=== PATIENT | male | born 1970 | race Caucasian/White ===

== ENCOUNTER 2016-09-29 20:56 | Emergency (ER) | payer MEDICAID, OTHER ==
[2016-09-29] MEDS ORDERED: Dexamethasone Sodium Phos 10 mg/mL PF Vial ONE (21:09)
--- NOTE | 2016-09-29 21:11 | ED Physician Chart ---
Chief Complaint/HPI - Patient Information Date Seen:: 09/29/16 Time Seen:: 21:00 Chief Complaint:: knee pain History of Present Illness:: 46-year-old male history of hypertension, complains of acute, constant, worsening, aching, worse with movement, nonradiating left posterior knee pain 1 week. Denies fevers, chills, chest pain, palpitations, nausea, vomiting, headache, acute vision changes. Allergies:: Allergies Allergy/AdvReac Type Severity Reaction Status Date / Time No Known Allergies Allergy Verified 09/29/16 21:09 Historian:: Patient Review:: Nurse's Note Reviewed Review of Systems - Review of Systems Other: Complete system review otherwise unremarkable except as noted in history of present illness. Past Medical History - Past Medical History Past Medical History: HTN, Other (obesity) Family History: None Social History: Non Smoker, No Alcohol, No Drug Use, Employed Surgical History: None Psychiatricy History: None Medication: None Family Medical History - Family Member Mother History Unknown: Yes Ethnicity: Non- Physical Exam - Physical Examination Other:: INITIAL VITAL SIGNS: Reviewed by me GENERAL: Alert and interactive. No acute distress HEAD: Head is normocephalic and atraumatic EYES: EOMI. No scleral icterus. No conjunctival injection ENT: Moist mucous membranes. NECK: Supple. No masses. Full range of motion RESPIRATORY: No tachypnea. Clear breath sounds bilaterally. No wheezing, rales, or rhonchi CV: Regular rate and rhythm. No murmurs, rubs, or gallops ABDOMEN: Soft, non-distended, non-tender. No guarding. No rebound. No masses. EXTREMITIES: Left posterior knee is tender to palpation. No increased warmth or erythema. SKIN: Warm and dry. No obvious rashes. NEUROLOGIC: Alert and oriented. Face is symmetric. Speech is normal. Moves all extremities equally. Motor and sensory distally intact. Labs/Radiology/EKG Results - Radiology Results Results: Ultrasound left lower extremity Cyst behind the knee consistent with Aragon's cyst ED Septic Shock - . Is Septic Shock (SBP<90, OR Lactate>4 mmol\L) present?: No Reassessment (Disposition) - Reassessment Reassessment:: Patient has Aragon's cyst left knee. We will take a conservative approach to treatment for now. We gave intramuscular Toradol and Decadron. Patient has ibuprofen at home that he will take this next week. Follow-up with primary care 1-2 days. Return to ER precautions given. Patient says he understands and agrees with the plan. Reassessment Condition:: Improved - Diagnosis Diagnosis:: Acute left knee pain due to acute Aragon's cyst, left - Aftercare/Follow up Instructions Aftercare/Follow-Up Instructions:: Counseled pt regarding lab results/diagnosis & need follow up, Refer to Discharge Instructions - Patient Disposition Discharge/Transfer:: Home Time:: 21:45 Condition at Disposition:: Improved ED Discharge Plan - Patient Disposition Admit/Discharge/Transfer: PT DISCHARGED HOME Condition at Disposition: Improved Instructions: Aragon's Cyst
[2016-09-29] MEDS ORDERED: Dexamethasone Sodium Phos 4 mg/mL Vial IM STA (21:12)
--- NOTE | 2016-09-30 10:36 | Diagnostic Imaging Report ---
Ultrasound left knee, nonvascular History: Knee pain, rule out Aragon's cyst Comparison: None Technique/procedure: Sonography of the left popliteal region in the area of concern was performed. There is a large cyst measuring 7.0 x 3.8 x 2.2 cm most suggestive of a Aragon's cyst. No other focal abnormality identified. IMPRESSION: Large cyst of the left popliteal region suggestive of a Aragon's cyst. Clinical correlation is recommended.
== END 2016-09-29 22:20 | disposition home or self-care (01) ==
LOC: ER 20:56
DX: M71.22 Synovial cyst of popliteal space [Baker], left knee (principal); I10 Essential (primary) hypertension
CPT/HCPCS: 99284; 96372 ×2; 76881; J1885; Z7502